=== PATIENT | female | born 1975 | race American Indian/Alaskan Native ===

== ENCOUNTER 2022-02-25 09:50 | Emergency (ER) | payer SELFPAY ==
--- NOTE | 2022-02-25 16:09 | Emergency Department Report ---
ED Extremity Problem HPI - General Chief complaint: Extremity Problem,Nontraumatic Stated complaint: SWOLLEN/FEET Time Seen by Provider: 02/25/22 16:02 Source: patient Mode of arrival: Ambulatory Limitations: No Limitations - History of Present Illness Initial comments: 46-year-old female presents to the ED complaining of bilateral lower leg extremity x10 days. Patient states over the last 3 days that she has become short of breath. Patient states that she has been elevating her lower extremity with has improved some of the swelling. States that she is new to town and has been doing a lot of prolonged walking and some flat shoes. She denies any medical history. Denies any chest pain, nausea or vomiting or abdominal pain at present time. Patient is alert and oriented x3. No acute distress noted. No ill appearance noted. MD Complaint: extremity swelling Onset/Timin -: week(s) Location: bilateral lower extremity History of Same: No -: Yes associated dyspnea Radiation: none Severity scale (0 -10): 0 Improves with: elevation Worsens with: walking Associated Symptoms: shortness of breath - Related Data Allergies Allergy/AdvReac Type Severity Reaction Status Date / Time No Known Allergies Allergy Unverified 02/25/22 11:17 ED Review of Systems ROS: Stated complaint: SWOLLEN/FEET Other details as noted in HPI Constitutional: denies: chills, fever Eyes: denies: eye pain, eye discharge, vision change ENT: denies: ear pain, throat pain Respiratory: shortness of breath. denies: cough, wheezing Cardiovascular: edema. denies: chest pain, palpitations Endocrine: no symptoms reported Gastrointestinal: denies: abdominal pain, nausea, diarrhea Genitourinary: denies: urgency, dysuria, discharge Musculoskeletal: denies: back pain, joint swelling, arthralgia Skin: denies: rash, lesions Neurological: denies: headache, weakness, paresthesias Psychiatric: denies: anxiety, depression Hematological/Lymphatic: denies: easy bleeding, easy bruising ED Past Medical Hx - Past Medical History Previous Medical History?: Yes Additional medical history: Right leg broken - Surgical History Past Surgical History?: Yes Additional Surgical History: Right leg ED Physical Exam - General Limitations: No Limitations General appearance: alert, in no apparent distress - Head Head exam: Present: atraumatic, normocephalic - Eye Eye exam: Present: normal appearance - ENT ENT exam: Present: mucous membranes moist - Neck Neck exam: Present: normal inspection - Respiratory Respiratory exam: Present: normal lung sounds bilaterally. Absent: respiratory distress - Cardiovascular Cardiovascular Exam: Present: regular rate, normal rhythm. Absent: systolic murmur, diastolic murmur, rubs, gallop - GI/Abdominal GI/Abdominal exam: Present: soft, normal bowel sounds - Extremities Exam Extremities exam: Present: normal inspection - Back Exam Back exam: Present: normal inspection - Neurological Exam Neurological exam: Present: alert, oriented X3 - Psychiatric Psychiatric exam: Present: normal affect, normal mood - Skin Skin exam: Present: warm, dry, intact, normal color. Absent: rash ED Course Vital Signs 02/25/22 11:23 Temperature 97.9 F Pulse Rate 76 Respiratory 20 Rate Blood Pressure 121/71 [Right] O2 Sat by Pulse 100 Oximetry ED Medical Decision Making - Lab Data Result diagrams: 02/25/22 16:04 02/25/22 16:04 - Radiology Data [facility] [address] [place] [address] XRay Report Signed Patient: KIRAN BENITO MR#: [id number] : 1975 Acct:[id number] Age/Sex: 46 / F ADM Date: 02/25/22 Loc: ED Attending Dr: Ordering Physician: PARTHA DUARTE Date of Service: 02/25/22 Procedure(s): XR chest routine 2V Accession Number(s): [id number] cc: PARTHA DUARTE Fluoro Time In Minutes: CHEST 2 VIEWS INDICATION: shortness of breath. COMPARISON: None FINDINGS: SUPPORT DEVICES: None. HEART: Within normal limits. LUNGS/PLEURA: No acute air space or interstitial disease. No pneumothorax. ADDITIONAL FINDINGS: None. IMPRESSION: 1. No acute findings. Signer Name: Roberto Alonso MD Signed: 02/25/2022 4:11 PM Workstation Name: [id number] Transcribed By: SERGIO Dictated By: Roberto Alonso MD Electronically Authenticated By: Roberto Alonso MD Signed Date/Time: 02/25/221610 DD/ 10 TD/TT: - Medical Decision Making 46-year-old female presents to the ED complaining of bilateral lower leg extremity x10 days. Patient states over the last 3 days that she has become short of breath. Patient states that she has been elevating her lower extremity with has improved some of the swelling. States that she is new to town and has been doing a lot of prolonged walking and some flat shoes. She denies any medical history. Denies any chest pain, nausea or vomiting or abdominal pain at present time. Patient is alert and oriented x3. No acute distress noted. No ill appearance noted. Physical examination patient has lower non-pitting edema noted. Rechecked the patient is resting quietly quietly and comfortable and feeling better. I discussed the results of diagnostic study, my clinical impression and the plan for further treatment with the patient. Patient agrees with plan and discharge at this present time. All question addressed. I have given the patient instruction regarding a diagnosis ,expectation ,follow- up and return precaution. I explained to the patient that emergent condition may arise and to return to the ED for new worsen and any new persisting condition. I have explained the importance of following up with the primary care physician or referral physician listed below has instructed. The patient verbalized understanding of discharge instruction. Critical care attestation.: If time is entered above; I have spent that time in minutes in the direct care of this critically ill patient, excluding procedure time. ED Disposition Clinical Impression: Lymphedema Disposition: 01 HOME / SELF CARE / HOMELESS Is pt being admited?: No Does the pt Need Aspirin: No Condition: Stable Instructions: Lymphedema Additional Instructions: Keep legs elevated Return ED for any worsening symptom Referrals: [facility] [Provider Group] - 3-5 Days Forms: Work/School Release Form(ED) Time of Disposition: 16:53
--- NOTE | 2022-02-25 16:16 | XRay Report ---
CHEST 2 VIEWS INDICATION: shortness of breath. COMPARISON: None FINDINGS: SUPPORT DEVICES: None. HEART: Within normal limits. LUNGS/PLEURA: No acute air space or interstitial disease. No pneumothorax. ADDITIONAL FINDINGS: None. IMPRESSION: 1. No acute findings. Signer Name: Roberto Alonso MD Signed: 02/25/2022 4:11 PM Workstation Name: [id number]
[2022-02-25 16:20] LABS: Hematocrit 26.5 % (30.3-42.9); Hemoglobin 8.1 gm/dl (10.1-14.3); Mean Corpuscular HGB Conc 31 % (30-34); Platelet Count 403 K/mm3 (140-440); Red Blood Count 3.98 M/mm3 (3.65-5.03)
[2022-02-25 16:22] LABS: Mean Corpuscular Volume 67 fl (79-97); Red Cell Distribution Width 27.7 % (13.2-15.2)
[2022-02-25 16:27] LABS: Bilirubin,Urine NEG (Negative); Blood,Urine NEG (Negative); Color,Urine Yellow (Yellow); Protein,Urine <15 mg/dL mg/dL (Negative); Urobilinogen,Urine < 2.0 mg/dL (<2.0)
[2022-02-25 16:29] LABS: Mucus,Urine FEW /HPF; WBC,Urine < 1.0 /HPF (0.0-6.0)
[2022-02-25 16:39] LABS: Alanine Aminotransferase 14 units/L (7-56); Albumin 3.9 g/dL (3.9-5); Blood Urea Nitrogen 8 mg/dL (7-17); Hemolysis Index 3
[2022-02-25 16:41] LABS: BUN/Creatinine Ratio 16
[2022-02-25 17:05] VITALS: BP 138/69
--- NOTE | 2022-02-26 09:34 | Electrocardiograph Report ---
[facility] Test Date: 2022-02-25 Test Time: 16:12:31 Pat Name: KIRAN BENITO Department: Room: Gender: F Online [employer]: MILE : 1975 Requested By: ALLY VERONICA Order Number: [id number] Reading MD: David Mclaughlin Measurements Intervals [place] Rate: 65 P: 63 AL: 200 QRS: 56 QRSD: 86 T: 51 QT: 407 QTc: 424 Interpretive Statements Sinus rhythm No previous ECG available for comparison Electronically Signed On 02-26-2022 9:33:48 EDT by David Mclaughlin
== END 2022-02-25 17:23 | disposition home or self-care (01) ==
LOC: ED 09:50
DX: I89.0 Lymphedema, not elsewhere classified (principal)
CPT/HCPCS: 36415; 71046; 80053; 81001; 83880; 84484; 85027; 93005; 99284